=== PATIENT | female | born 1930 | race Caucasian/White ===

== ENCOUNTER 2022-03-10 17:39 | Emergency (ER) | payer MEDICARE ==
[~2022-03-10] VITALS: Ht 160 cm; Wt 71.0 kg
[2022-03-10] MEDS ORDERED: LIDOCAINE 1%/EPI 1:100,000 inj. 10 ML multi-dose vial IJ ONE (17:50)
[2022-03-10] MEDS ORDERED: TETanus/Pertussis (Acell)/Diphther VAC/PF (Tdap-Adult) 0.5ml syringe IMVAC ONE (17:50)
[2022-03-10 17:52] VITALS: BP 100/53
--- NOTE | 2022-03-10 18:03 | NUR ---
LIDOCAINE PLACED ON BEDSIDE TABLE FOR ER PROVIDER
[2022-03-10] MEDS ORDERED: AMOX-117 PO (18:38)
== END 2022-03-10 19:16 | disposition home or self-care (01) ==
LOC: ER 17:39
DX: S81.812A Laceration without foreign body, left lower leg, initial encounter (principal); I10 Essential (primary) hypertension; X58.XXXA Exposure to other specified factors, initial encounter; Y93.89 Activity, other specified; Y92.89 Other specified places as the place of occurrence of the external cause; Y99.8 Other external cause status
CPT/HCPCS: 12002; 90471; 90715; 99284; J3490; A6258; A6449